=== PATIENT | female | born 1940 | race Caucasian/White ===

== ENCOUNTER → 2017-01-11 | Outpatient (CLI) | payer MEDICARE, BC | END | disposition home or self-care (01) | LOC: PCVCCLINIC 15:02 | PROVIDERS: ATTEND Internal Medicine Cardiovascular Disease | DX: I71.2 Thoracic aortic aneurysm, without rupture (principal); I71.4 Abdominal aortic aneurysm, without rupture; I10 Essential (primary) hypertension; E78.5 Hyperlipidemia, unspecified; M19.90 Unspecified osteoarthritis, unspecified site; E78.00 Pure hypercholesterolemia, unspecified; Z72.0 Tobacco use; Z79.82 Long term (current) use of aspirin | CPT/HCPCS: 80061; G0463; 93005 ==

== ENCOUNTER → 2017-03-03 | Outpatient (CLI) | payer MEDICARE, BC ==
--- NOTE | 2017-03-03 18:33 | PCVCINTER ---
APPROVED REPORT Patient Details Patient Status: Out-Patient Room #: 1 The patient is a 76 year-old Female Event Personnel Vaishali Ayala MD, Chely Patterson RT(R)(), Marifer Godoy RT(R), Daryn Butler RN Risk Factors Arterial HypertensionDysplipidemia (Type: 1), Family History, Hypercholesterolemia, Last Creatanine 0.8Tobacco History (Current/Recent(w/in 1 year)) Previous Procedures/Diagnoses Hypertension Procedure Narrative The patient was brought electively to the Cardiac Catheterization Laboratory and was prepped and draped in a sterile manner. The right femoral was infiltrated with 1% Lidocaine subcutaneous anesthesia. A 6 fr sheath was inserted into the right femoral artery. Coronary angiography was performed using coronary diagnostic catheters. The right coronary system was accessed and visualized with a AR1 Diagnostic catheter. The left coronary system was accessed and visualized with a JL6 Diagnostic catheter. The left ventricle was accessed and visualized with a marking pigtail Diagnostic catheter. Left ventriculogram was performed in [place] projection. Pre-demployment femoral angiogram was performed . Closure device was deployed with a 6 Fr Mynx. The patient tolerated the procedure well and there were no complications associated with the procedure. There was no hematoma. Hemodynamics The aortic pressure is 115/52 mmHg with a mean of 59 mmHg. The left ventricular pressure is 148/4 mmHg with a mean of 11 mmHg. 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 Recommendations and plan continue aggressive risk factor modification patient is to follow-up with CV surgery regarding ascending aortic aneurysm repair No lifting for 48 hours no line tub Jacuzzi or or peripheral for the next week. Restart home medications.
== END | disposition home or self-care (01) ==
LOC: PCVCINTER 10:59
PROVIDERS: ATTEND Internal Medicine Cardiovascular Disease
DX: I71.2 Thoracic aortic aneurysm, without rupture (principal); I35.1 Nonrheumatic aortic (valve) insufficiency; I10 Essential (primary) hypertension; E78.00 Pure hypercholesterolemia, unspecified; E78.5 Hyperlipidemia, unspecified
CPT/HCPCS: 93458; 93567; 99152; 99153; C1751; C1760; C1769; C1894

== ENCOUNTER → 2017-05-03 | Outpatient (CLI) | payer MEDICARE, BC | END | disposition home or self-care (01) | LOC: PCVCCLINIC 11:00 | PROVIDERS: ATTEND Internal Medicine Cardiovascular Disease | DX: I71.9 Aortic aneurysm of unspecified site, without rupture (principal); I10 Essential (primary) hypertension; I48.91 Unspecified atrial fibrillation; E78.00 Pure hypercholesterolemia, unspecified; M19.90 Unspecified osteoarthritis, unspecified site; Z79.01 Long term (current) use of anticoagulants; Z79.82 Long term (current) use of aspirin; Z87.891 Personal history of nicotine dependence; Z88.8 Allergy status to other drugs, medicaments and biological substances | CPT/HCPCS: 80061; 93005; G0463 ==

== ENCOUNTER → 2017-05-04 | Outpatient (CLI) | payer MEDICARE, BC ==
--- NOTE | 2017-05-05 16:01 | PCVCIMAG ---
APPROVED REPORT Study performed: 05/04/2017 15:33:23 EXAM: Comprehensive 2D, Doppler, and color-flow Echocardiogram Patient Location: Echo lab Room #: 3Status: routine BSA: 1.76 HR: 80 bpmBP: 122/72 mmHg Rhythm: NSR Other Information Study Quality: Adequate Risk Factors: Cardiac Risk Factors: HTN, Hyperlipidemia Indications Aortic Valve Disease Assess Ejection Fraction Atrial Fibrillation Dyspnea Fatigue ASCENDING AORTIC ANEURYSM REPAIR X 3 WEEKS 2D Dimensions LVEF(%): 68.04 (>50%) IVSd: 6.44 (7-11mm)LVOT Diam: 19.65 (18-24mm) LVDd: 40.67 mm PWd: 8.22 (7-11mm)Ascending Ao: 33.10 (22-36mm) LVDs: 25.42 (25-40mm) Left Atrium: 27.58 (27-40mm) Aortic Root: 25.96 mm LV Single Plane 4CH: 60.31 % LV Single Plane 2CH: 54.26 %Najera's LVEF: 57.28 % Biplane EF: 53.7 % Volumes Left Atrial Volume (Systole) Single Plane 4CH: 25.17 mLSingle Plane 2CH: 36.74 mL Biplane LA Volume: 35.00 mLLA ESV Index: 20.00 mL/m2 Aortic Valve AoV Peak Karsten.: 1.28 m/s AO Peak Gr.: 6.91 mmHgLVOT Max P.10 mmHg LVOT Max V: 1.13 m/s ANAHY Vmax: 2.68 cm2 AI Vmax: 3.28 m/s AI [place]: 1.50 m/s2 AI PHT: 635.44 ms Mitral Valve E/A Ratio: 1.0 MV Decel. Time: 149.76 ms MV E Max Karsten.: 0.99 m/s MV A Karsten.: 0.98 m/s MV PHT: 43.43 ms MVA (PHT): 4.02 cm2 IVRT: 103.81 ms TDI E/Lateral E': 11.00E/Medial E': 19.80 Medial E' Karsten.: 0.05 m/s Lateral E' Karsten.: 0.09 m/s Pulmonary Valve PV Peak Karsten.: 0.81 m/sPV Peak Gr.: 2.61 mmHg Pulmonary Vein P Vein S: 0.61 m/sP Vein A: 0.27 m/s P Vein D: 0.44 m/sP Vein A Dur.: 76.1 msec P Vein S/D Ratio: 1.39 Tricuspid Valve TR Peak Karsten.: 2.69 m/s TR Peak Gr.: 29.05 mmHg TV Vmax: 0.73 m/sPA Pressure: 36.00 mmHg Left Ventricle The left ventricle is normal size. There is normal LV segmental wall motion. There is normal left ventricular wall thickness. Left ventricular systolic function is normal. The left ventricular ejection fraction is within the normal range. LVEF is 50-55%. Grade II - pseudonormal filling dynamics. Right Ventricle The right ventricle is normal size. The right ventricular systolic function is normal. Atria The left atrium size is normal. The right atrium size is normal. Aortic Valve The aortic valve is normal in structure. Mild aortic regurgitation. There is no aortic valvular stenosis. Mitral Valve The mitral valve is normal in structure. Mild mitral regurgitation. No evidence of mitral valve stenosis. Tricuspid Valve The tricuspid valve is normal in structure. Mild tricuspid regurgitation WITH A pa PRESSURE OF 36 MMhG.. Pulmonic Valve The pulmonary valve is normal in structure. There is no pulmonic valvular regurgitation. Great Vessels The aortic root is normal in size.recent graft intact for asc aortic aneurysm repair The ascending aorta is normal in size with normal flow velocities. IVC is normal in size and collapses with >50% inspiration Pericardium Trace pericardial effusion. There is no pleural effusion. <Conclusion> The left ventricle is normal size. There is normal left ventricular wall thickness. LVEF is 50-55%. Grade II - pseudonormal filling dynamics. The right ventricle is normal size. The left atrium size is normal. There is no aortic valvular stenosis. Mild mitral regurgitation. Mild tricuspid regurgitation WITH A pa PRESSURE OF 36 MMhG.. The aortic root is normal in size.recent graft intact for asc aortic aneurysm repair Trace pericardial effusion.
== END | disposition home or self-care (01) ==
LOC: PCVCIMAG 15:05
PROVIDERS: ATTEND Internal Medicine Cardiovascular Disease
DX: I08.3 Combined rheumatic disorders of mitral, aortic and tricuspid valves (principal); I48.91 Unspecified atrial fibrillation; I71.9 Aortic aneurysm of unspecified site, without rupture; I10 Essential (primary) hypertension; E78.00 Pure hypercholesterolemia, unspecified; M19.90 Unspecified osteoarthritis, unspecified site; I31.3 Pericardial effusion (noninflammatory); Z87.891 Personal history of nicotine dependence; Z79.01 Long term (current) use of anticoagulants; Z79.82 Long term (current) use of aspirin
CPT/HCPCS: 93306

== ENCOUNTER → 2017-07-06 | Outpatient (CLI) | payer MEDICARE, BC | END | disposition home or self-care (01) | LOC: PCVCCLINIC 13:40 | PROVIDERS: ATTEND Internal Medicine Cardiovascular Disease | DX: I48.0 Paroxysmal atrial fibrillation (principal); I10 Essential (primary) hypertension; I71.2 Thoracic aortic aneurysm, without rupture; E78.00 Pure hypercholesterolemia, unspecified; M19.90 Unspecified osteoarthritis, unspecified site; Z87.891 Personal history of nicotine dependence; Z79.899 Other long term (current) drug therapy | CPT/HCPCS: 80061; 93005; G0463 ==

== ENCOUNTER → 2018-01-26 | Outpatient (CLI) | payer MEDICARE, BC | END | disposition home or self-care (01) | LOC: PCVCIMAG 14:28 | DX: I08.2 Rheumatic disorders of both aortic and tricuspid valves (principal); I25.10 Atherosclerotic heart disease of native coronary artery without angina pectoris; R53.83 Other fatigue; I48.0 Paroxysmal atrial fibrillation; I71.4 Abdominal aortic aneurysm, without rupture; E78.00 Pure hypercholesterolemia, unspecified; I10 Essential (primary) hypertension; R06.02 Shortness of breath; Z87.891 Personal history of nicotine dependence; Z79.899 Other long term (current) drug therapy | CPT/HCPCS: 80061; 93005; 93306; G0463 ==

== ENCOUNTER → 2018-08-15 | Outpatient (CLI) | payer MEDICARE, BC | END | disposition home or self-care (01) | LOC: PCVCCLINIC 13:44 | PROVIDERS: ATTEND Internal Medicine Cardiovascular Disease | DX: I35.8 Other nonrheumatic aortic valve disorders (principal); I48.0 Paroxysmal atrial fibrillation; I10 Essential (primary) hypertension; R53.83 Other fatigue; E78.00 Pure hypercholesterolemia, unspecified; I71.2 Thoracic aortic aneurysm, without rupture; J98.4 Other disorders of lung; Z87.891 Personal history of nicotine dependence; Z88.8 Allergy status to other drugs, medicaments and biological substances | CPT/HCPCS: 36415; 80061; 93005; G0463 ==

== ENCOUNTER → 2019-02-15 | Outpatient (CLI) | payer MEDICARE, BC ==
--- NOTE | 2019-02-15 14:18 | PCVCIMAG ---
APPROVED REPORT Study performed: 02/15/2019 10:36:38 EXAM: Comprehensive 2D, Doppler, and color-flow Echocardiogram Patient Location: Echo lab Room #: 2Status: routine BSA: 1.79 HR: 89 bpm Rhythm: NSR Other Information Study Quality: Good Indications Thoracic aortic aneurysm repair, Hx A Fib post -op 2D Dimensions IVSd: 6.79 (7-11mm)LVOT Diam: 19.56 (18-24mm) LVDd: 42.21 mm PWd: 8.04 (7-11mm)Ascending Ao: 27.38 (22-36mm) LVDs: 27.77 (25-40mm) Left Atrium: 29.43 (27-40mm) Aortic Root: 27.30 mm LV Single Plane 4CH: 54.31 % LV Single Plane 2CH: 54.03 % Biplane EF: 53.1 % Volumes Left Atrial Volume (Systole) Single Plane 4CH: 30.63 mLSingle Plane 2CH: 24.55 mL Biplane LA Volume: 28.00 mLLA ESV Index: 16.00 mL/m2 Aortic Valve AoV Peak Karsten.: 1.27 m/s AO Peak Gr.: 6.47 mmHgLVOT Max P.30 mmHg LVOT Max V: 1.07 m/s ANAHY Vmax: 2.53 cm2 AI Vmax: 4.26 m/s AI Potter: 2.35 m/s2 AI PHT: 528.15 ms Mitral Valve E/A Ratio: 0.6 MV Decel. Time: 133.32 ms MV E Max Karsten.: 0.59 m/s MV A Karsten.: 0.94 m/s IVRT: 83.04 ms TDI E/Lateral E': 11.80E/Medial E': 14.75 Medial E' Karsten.: 0.04 m/s Lateral E' Karsten.: 0.05 m/s Pulmonary Valve PV Peak Karsten.: 0.73 m/sPV Peak Gr.: 2.11 mmHg Pulmonary Vein P Vein S: 0.82 m/sP Vein A: 0.57 m/s P Vein D: 0.28 m/sP Vein A Dur.: 93.4 msec P Vein S/D Ratio: 2.93 Tricuspid Valve TR Peak Karsten.: 2.41 m/s TR Peak Gr.: 23.15 mmHg TV Vmax: 0.55 m/sPA Pressure: 30.00 mmHg Left Ventricle The left ventricle is normal size. There is normal LV segmental wall motion. There is normal left ventricular wall thickness. Left ventricular systolic function is normal. The left ventricular ejection fraction is within the normal range. LVEF is 50-55%. Grade I - abnormal relaxation pattern. Findings suggest the left atrial pressure is borderline elevated. Right Ventricle The right ventricle is normal size. The right ventricular systolic function is normal. Atria The left atrium size is normal. The right atrium size is normal. Aortic Valve The aortic valve is normal in structure and function. Trace to mild aortic regurgitation. There is no aortic valvular stenosis. Mitral Valve The mitral valve is normal in structure. There is no mitral valve regurgitation noted. No evidence of mitral valve stenosis. Tricuspid Valve The tricuspid valve is normal in structure. Mild tricuspid regurgitation with a PA pressure of 30 mmHg. Borderline pulmonary hypertension. Pulmonic Valve The pulmonary valve is normal in structure. There is no pulmonic valvular regurgitation. Great Vessels The aortic root is normal in size. The ascending aorta is normal in size. IVC is normal in size and collapses >50% with inspiration. Pericardium There is no pericardial effusion. There is no pleural effusion. <Conclusion> The left ventricle is normal size. LVEF is 50-55%. Grade I - abnormal relaxation pattern. Findings suggest the left atrial pressure is borderline elevated. The right ventricle is normal size. The left atrium size is normal. Trace to mild aortic regurgitation. There is no mitral valve regurgitation noted. Mild tricuspid regurgitation with a PA pressure of 30 mmHg. Borderline pulmonary hypertension. The aortic root is normal in size. There is no pericardial effusion.
== END | disposition home or self-care (01) ==
LOC: PCVCIMAG 10:27
PROVIDERS: ATTEND Internal Medicine Cardiovascular Disease
DX: I08.2 Rheumatic disorders of both aortic and tricuspid valves (principal); E78.00 Pure hypercholesterolemia, unspecified; I48.0 Paroxysmal atrial fibrillation; I10 Essential (primary) hypertension; Z98.890 Other specified postprocedural states; Z79.899 Other long term (current) drug therapy; Z87.891 Personal history of nicotine dependence
CPT/HCPCS: 36415; 80061; 93005; 93306; G0463